=== PATIENT | male | born 1960 | race Caucasian/White ===

== ENCOUNTER → 2016-12-01 | Day surgery (SDC) | payer OTHER ==
[~2016-12-01] MED LIST: ACET650T10 PR; APIX5TAB PO; ATEN-100 PO; ATEN-102 PO; COUM10TA PO; COUM7.5T PO; FLUT50SP EACH NARE; SIMV20 PO; fish oil; multivitamin
--- NOTE | 2016-12-01 13:30 | GIPROC ---
[facility] [address] [facility], [address] COLONOSCOPY PROCEDURE REPORT EXAM DATE: 12/01/2016 PATIENT NAME: Noah Dan MR #: [id number] BIRTHDATE: 1960 ENDOSCOPIST: Theron Jaimes MD ORDER #: [id number] LAND ACQUISITION ANALYST: Valentina Hi RN STATUS: outpatient INDICATIONS: The patient is a 56 yr old male here for a colonoscopy due to high risk patient with personal history of colonic polyps PROCEDURE PERFORMED: Colonoscopy with polypectomy Colonoscopy with biopsy MEDICATIONS: None and Per Anesthesia. PREP QUALITY: excellent ESTIMATED BLOOD LOSS: None CONSENT: The patient understands the risks and benefits of the procedure and understands that these risks include, but are not limited to: sedation, allergic reaction, infection, perforation and/or bleeding. Alternative means of evaluation and treatment include, among others: physical exam, x-rays, and/or surgical intervention. The patient elects to proceed with this endoscopic procedure. medical equipment was checked for proper function. Hand hygiene and appropriate measures for infection prevention was taken. After the risks, benefits and alternatives of the procedure were thoroughly explained, Informed consent was verified, confirmed and timeout was successfully executed by the treatment team. A digital exam revealed no abnormalities of the rectum The EC-[id number] ([id number]) endoscope was introduced through the anus and advanced to the cecum, which was identified by both the appendix and ileocecal valve. The instrument was then slowly withdrawn as the colon was fully examined. COLON FINDINGS: A soft small nodule was located in the ascending colon. Multiple biopsies were performed. Three small medium sized smooth sessile polyps were found in the ascending colon and descending colon. A polypectomy was performed with a cold snare. The resection was complete and the polyp tissue was completely retrieved. A small smooth sessile polyp was found in the transverse colon. A polypectomy was performed with cold forceps. The resection was complete and the polyp tissue was completely retrieved. The colon mucosa was otherwise normal. Retroflexed views revealed no abnormalities The scope was then completely withdrawn from the patient and the procedure terminated. PROCEDURE WITHDRAWAL TIME:23.3minutes ADVERSE EVENTS: There were no complications. IMPRESSIONS: 1. A small nodule was located in the ascending colon; multiple biopsies were performed 2. Three small medium sized sessile polyps were found in the ascending colon and descending colon; polypectomy was performed with a cold snare 3. A small sessile polyp was found in the transverse colon; polypectomy was performed with cold forceps 4. The colon mucosa was otherwise normal 5. Retroflexed views revealed no abnormalities 6. Revealed no abnormalities of the rectum RECOMMENDATIONS: 1. Await biopsy results. Biopsy results will not be ready for 7-10 days. If you don't hear from us in two weeks, call our office for results. 2. High fiber diet 3. Yearly hemoccult 4. Follow-up: GI Clinic PRN RECALL: Return 5 years Colonoscopy Theron Jaimes MD eSigned: Theron Jaimes MD 12/01/2016 1:30 PM cc: Lizbeth Bassett M.D and Homero Sim [facility] [place] PATIENT NAME: Noah Dan MR#: [id number]
== END | disposition home or self-care (01) ==
LOC: ESDC 10:58
PROVIDERS: ATTEND Internal Medicine Gastroenterology
DX: Z12.11 Encounter for screening for malignant neoplasm of colon (principal); Z86.010 Personal history of colon polyps; K63.89 Other specified diseases of intestine; D12.2 Benign neoplasm of ascending colon; D12.3 Benign neoplasm of transverse colon; D12.4 Benign neoplasm of descending colon
CPT/HCPCS: 88305